=== PATIENT | female | born 1970 | race Hispanic/Latino ===

== ENCOUNTER → 2018-02-26 | Day surgery (SDC) | payer OTHER ==
[~2018-02-26] MED LIST: BUPIVACAINE HCL 0.5% 10ML MPF VIAL INJ ONE; CEFAZOLIN SOD 1 GM VIAL ONE; DEXAMETHASONE SOD PHOS INJ 4 MG/ML VIAL ONE; FENTANYL CITRATE/PF 100MCG/2 ML INJ ONE; IBUPROFEN PO; KETOROLAC TROMETHAMINE 30 MG/ML VIAL ONE; LIDOCAINE HCL 2% LOCAL INJ 5 ML SDV VIAL INJ ONE; MIDAZOLAM HCL 2 MG/2 ML VIAL ONE; ONDANSETRON HCL 4 MG ORAL DISINTEGRATING TAB ONE; ONDANSETRON HCL INJ 2 MG/ML VIAL ONE; PROPOFOL IV EMULSION 10 MG/ML 20 ML VIAL ONE; SEVOFLURANE INHAL SOLN 250 ML PEN BTL ONE
--- NOTE | 2018-02-26 10:34 | Operative Report ---
DATE OF PROCEDURE: February 26, 2018 SADDLE AND SIDE WIRE STITCHER: Bradley Singletary PA-C The patient was brought to the operating room for induction of anesthesia. Throughout this case, my PA's assistance was necessary for retraction of soft tissue and positioning of the extremity. This allows for efficient and technically successful execution of the operation and is considered medically necessary. PREOPERATIVE DIAGNOSIS: Left trigger thumb. POSTOPERATIVE DIAGNOSIS: Left trigger thumb. PROCEDURE: Release of left trigger thumb. INDICATIONS: The patient is a 47-year-old lady who has clinic signs and symptoms consistent with stenosing tenosynovitis of her left thumb. She would like to proceed with definitive intervention. The risks and benefits have been explained. She states she understands and wishes to proceed. DESCRIPTION OF PROCEDURE: The patient was brought to the operating room and placed under a brief general anesthetic. Her left upper extremity was prepped and draped in a sterile manner. A preoperative time out was performed. The extremity was exsanguinated, and a proximal tourniquet was inflated to 250 mmHg. An incision was made over the flexion crease at the base of the left thumb. The neo was carefully exposed. Care was taken to avoid injury to neurovascular bundles. The neo was completely released. The tendon was retracted from the wound and noted to have complete release of any stenosing tenosynovitis. The wound was irrigated and closed with 2 interrupted nylon stitches. Two mL of 1/4 percent Marcaine without epinephrine were injected around the incision. The patient was placed into a sterile bandage, extubated and transported to the recovery room in stable condition. There was no blood loss. All needle and sponge counts were correct. Job#: [id number]
== END | disposition home or self-care (01) ==
LOC: OR 07:50
PROVIDERS: ATTEND Specialist
DX: M65.312 Trigger thumb, left thumb (principal); Z68.34 Body mass index [BMI] 34.0-34.9, adult
CPT/HCPCS: 26055; J0690; J1100; J1885; J2001; J2250; J2405